=== PATIENT | male | born 1970 | race Caucasian/White ===

== ENCOUNTER 2017-02-28 15:13 | Observation (INO) | payer BC ==
[~2017-02-28] VITALS: Ht 182.9 cm; Wt 120.0 kg
[~2017-02-28 15:13] MED LIST: AUGM875 PO; CIPR500T2 PO; DARV PO; IBUP-232 PO
[2017-02-28 15:15] VITALS: BP 175/102; PULSE 111; RESP 15; TEMP 98.6; O2SAT 99
[2017-02-28] MEDS ORDERED: SODIUM CHLORIDE 0.9% FLUSH 10 ML FLUSH IVF PRN (16:00)
[2017-02-28] MEDS ORDERED: ASPIRIN 81 MG CHEW TAB PO ONE (16:00)
[2017-02-28] MEDS ORDERED: NITROGLYCERIN 2% OINT 1 GM PACKET TOP ONE (16:00)
[2017-02-28] MEDS ORDERED: SODIUM CHLORID 0.9% 500 ML INJ 500 ML IV ONE (16:00)
[2017-02-28 16:05] VITALS: BP 186/88; PULSE 101; RESP 20; O2SAT 98
[2017-02-28] MEDS ORDERED: AMLO10TA2 PO (16:07)
--- NOTE | 2017-02-28 16:12 | PD ---
HPI Chief Complaint: Chest Pain Time Seen by Provider: 15:37 Travel History International Travel<30 days: No Contact w/Intl Traveler<30days: No Traveled to known affect area: No History of Present Illness HPI 47-year-old male presents to emergency for with several episodes of left chest pain, which he describes as a cramping which lasted several minutes while at rest today. Patient states he also has noticed some left lower leg edema which she noticed yesterday and seems to be somewhat worse today. Upon arrival here in the emergency department he is pain-free and denies shortness of breath, nausea, vomiting, or fever. No significant cough is noted. Patient does take amlodipine for hypertension but does not take anything for hyperlipidemia. Patient has no previous history of heart trouble or history of stress testing in the past. Patient does not take aspirin daily. Patient states he does have occasional heartburn and takes Prilosec for this occasionally, and does admit to some increased stress regarding work currently. He has no known drug allergies but is allergic to bees. PFSH Past Medical History Hypertension: Yes Social History Alcohol Use: Yes (occassionally ) Tobacco Use: No Substance Use: No Allergies-Medications (Allergen,Severity, Reaction): Coded Allergies: bee venom protein (honey bee) (Unverified Allergy, Severe, LOCALIZED SWELLING, 11/26/16) No Known Allergies (Verified , 04/23/07) Reported Meds & Prescriptions Reported Meds & Active Scripts Active Reported Amlodipine (Amlodipine Besylate) 10 Mg Tab 10 Mg PO DAILY Review of Systems Except as stated in HPI: all other systems reviewed are Neg General / Constitutional: No: Fever, Chills Eyes: No: Visual changes HENT: No: Headaches Cardiovascular: Positive: Chest Pain or Discomfort, Edema (history of present illness. See history of present illness), No: Palpitations, Irregular Rhythm, Tachycardia, Diaphoresis, Syncope, Dyspnea on exertion, Varicosities, Varicosities, Phlebitis, Claudication Respiratory: No: Cough, Shortness of Breath, Wheezing Gastrointestinal: No: Nausea, Vomiting, Diarrhea, Abdominal Pain Genitourinary: No: Dysuria Musculoskeletal: No: Pain Skin: No Rash Neurologic: No: Weakness Psychiatric: No: Depression Endocrine: No: Polydipsia Hematologic/Lymphatic: No: Easy Bruising Physical Exam Narrative GENERAL: Patient appears in no acute distress. SKIN: Warm and dry. Normal color. Normal turgor. HEAD: Atraumatic. Normocephalic. EYES: Pupils equal and round. No scleral icterus. No injection or drainage. ENT: No nasal bleeding or discharge. Mucous membranes pink and moist. Pharynx is clear. Airway is patent NECK: Trachea midline. Supple and nontender. CARDIOVASCULAR: Regular rate and rhythm. No murmurs gallops or rubs. RESPIRATORY: No accessory muscle use. Clear to auscultation. Breath sounds equal bilaterally. GASTROINTESTINAL: Abdomen soft, non-tender, nondistended. Hepatic and splenic margins not palpable. MUSCULOSKELETAL: Extremities without clubbing, cyanosis, or 1-2+ nonpitting nontender edema in the left lower leg. No obvious deformities. Negative Homans sign. NEUROLOGICAL: Awake and alert. No obvious cranial nerve deficits. Motor grossly within normal limits. Five out of 5 muscle strength in the arms and legs. Normal speech. PSYCHIATRIC: Appropriate mood and affect; insight and judgment normal. Data Data Last Documented VS Vital Signs Date Time Temp Pulse Resp B/P (MAP) Pulse Ox O2 Delivery O2 Flow Rate FiO2 02/28/17 17:57 97 20 139/84 (102) 97 Room Air 02/28/17 15:15 98.6 Orders Orders Electrocardiogram (02/28/17 15:55) B-Type Natriuretic Peptide (02/28/17 15:55) Ckmb (Isoenzyme) Profile (02/28/17 15:55) Complete Blood Count With Diff (02/28/17 15:55) Comprehensive Metabolic Panel (02/28/17 15:55) Magnesium (Mg) (02/28/17 15:55) Prothrombin Time / Inr (Pt) (02/28/17 15:55) Act Partial Throm Time (Ptt) (02/28/17 15:55) Troponin I (02/28/17 15:55) Chest, Single Ap (02/28/17 15:55) Ecg Monitoring (02/28/17 15:55) Bilateral Bp Monitoring (02/28/17 15:55) Iv Access Insert/Monitor (02/28/17 15:55) Oximetry (02/28/17 15:55) Oxygen Administration (02/28/17 15:55) Aspirin Chew (Aspirin Chew) (02/28/17 16:00) Nitroglycerin 2% Oint (Nitroglycerin 2% (02/28/17 16:00) Sodium Chloride 0.9% Flush (Ns Flush) (02/28/17 16:00) Sodium Chlorid 0.9% 500 Ml Inj (Ns 500 M (02/28/17 16:00) Us Leg Venous Doppler (02/28/17 15:55) CKMB (02/28/17 16:20) CKMB% (02/28/17 16:20) Acetaminophen (Tylenol) (02/28/17 18:00) Activity Bed Rest With Brp (02/28/17 17:57) Vital Signs (Adult) Q4H (02/28/17:57) Cardiac Rhythm .As Directed (02/28/17:57) Notify Dr: Other .PRN (02/28/17:57) Notify DrArun Parameters (02/28/17:57) Resp Oxygen Nasal Cannula (02/28/17 ) Diet Heart Healthy (02/28/17 Dinner) Ckmb (Isoenzyme) Profile (02/28/17 17:57) Ckmb (Isoenzyme) Profile (02/28/17 20:57) Troponin I (02/28/17 17:57) Troponin I (02/28/17 20:57) Electrocardiogram (02/28/17 17:57) Electrocardiogram (02/28/17 20:57) ^ Obtain (02/28/17 17:57) Sodium Chloride 0.9% Flush (Ns Flush) (02/28/17 18:00) Sodium Chloride 0.9% Flush (Ns Flush) (02/28/17 21:00) Acetaminophen (Tylenol) (02/28/17 18:00) Head Teller / Telemetry MARY.Q8H (02/28/17 17:57) Admit Order (Ed Use Only) (02/28/17 18:01) Labs Laboratory Tests Test 02/28/17 16:20 White Blood Count 6.7 TH/MM3 Red Blood Count 4.92 MIL/MM3 Hemoglobin 15.9 GM/DL Hematocrit 45.0 % Mean Corpuscular Volume 91.6 FL Mean Corpuscular Hemoglobin 32.4 PG Mean Corpuscular Hemoglobin Concent 35.3 % Red Cell Distribution Width 13.6 % Platelet Count 285 TH/MM3 Mean Platelet Volume 7.8 FL Neutrophils (%) (Auto) 64.0 % Lymphocytes (%) (Auto) 20.7 % Monocytes (%) (Auto) 9.1 % Eosinophils (%) (Auto) 5.4 % Basophils (%) (Auto) 0.8 % Neutrophils # (Auto) 4.3 TH/MM3 Lymphocytes # (Auto) 1.4 TH/MM3 Monocytes # (Auto) 0.6 TH/MM3 Eosinophils # (Auto) 0.4 TH/MM3 Basophils # (Auto) 0.1 TH/MM3 CBC Comment DIFF FINAL Differential Comment Prothrombin Time 10.7 SEC Prothromb Time International Ratio 1.0 RATIO Activated Partial Thromboplast Time 25.4 SEC Blood Urea Nitrogen 12 MG/DL Creatinine 1.30 MG/DL Random Glucose 122 MG/DL Total Protein 7.5 GM/DL Albumin 4.1 GM/DL Calcium Level 8.9 MG/DL Magnesium Level 2.1 MG/DL Alkaline Phosphatase 57 U/L Aspartate Amino Transf (AST/SGOT) 27 U/L Alanine Aminotransferase (ALT/SGPT) 53 U/L Total Bilirubin 1.5 MG/DL Sodium Level 139 MEQ/L Potassium Level 3.6 MEQ/L Chloride Level 105 MEQ/L Carbon Dioxide Level 26.0 MEQ/L Anion Gap 8 MEQ/L Estimat Glomerular Filtration Rate 59 ML/MIN Total Creatine Kinase 400 U/L Creatine Kinase MB 3.0 NG/ML Creatine Kinase MB % 0.8 % Troponin I LESS THAN 0.02 NG/ML B-Type Natriuretic Peptide 2 PG/ML MDM Medical Decision Making Medical Screen Exam Complete: Yes Emergency Medical Condition: Yes Differential Diagnosis Pedal edema. DVT. PE. Cardiac syndrome. Chest pain. OH. Narrative Course Patient appears medically stable at time of exam is pain-free. EKG shows sinus rhythm with nonspecific ST changes. This is reviewed with Dr. Perez. IV access is obtained and labs are ordered including CBC, CMP, cardiac panel, PT PTT and INR, and proBNP. Patient given 324 mg aspirin by mouth. 1 inch of 2% nitroglycerin paste is placed. Chest x-ray is ordered as well as ultrasound of the left lower extremity. Chest x-ray is unremarkable for acute process per radiologist. Ultrasound left leg is unremarkable. CBC is unremarkable. Coagulation studies are unremarkable. CMP is normal except for GFR 59, random glucose is 122. First troponin is less than 0.02. ProBNP is normal. Patient developed a headache and was given 1000 mg acetaminophen by mouth. Patient agrees to be admitted to the chest pain center for observation and further workup. Chest pain center admission orders are placed. Diagnosis Primary Impression: Chest pain at rest Admitting Information Admitting Physician Requests: Observation Condition: Stable Conrad Brown Feb 28, 2017 16:12
--- NOTE | 2017-02-28 16:16 | RADRPT ---
EXAM DATE/TIME: 02/28/2017 15:58 [facility] COMPARISON: No previous studies available for comparison. INDICATIONS : Chest pain with some lightheadedness. MEDICAL HISTORY : None. SURGICAL HISTORY : None. ENCOUNTER: Initial ACUITY: 1 day PAIN SCORE: 4/10 LOCATION: Left chest FINDINGS: A single view of the chest demonstrates the lungs to be symmetrically aerated without evidence of mas s, infiltrate or effusion. The study is Midinspiratory. There are overlying electrocardiogram leads. The cardiomediastinal contours are unremarkable. Osseous structures are intact. CONCLUSION: Midinspiratory exam with no acute cardiopulmonary disease. James Tyson MD on February 28, 2017 at 16:14 Board Certified Radiologist. This report was verified electronically.
--- NOTE | 2017-02-28 16:36 | RADRPT ---
EXAM DATE/TIME: 02/28/2017 16:14 [facility] COMPARISON: No previous studies available for comparison. INDICATIONS : Left leg swelling. MEDICAL HISTORY : Left leg swelling. SURGICAL HISTORY : Right hand surgery. Right knee surgery. ENCOUNTER: Initial ACUITY: 1 day PAIN SCORE: 1/10 LOCATION: Left leg. TECHNIQUE: Venous ultrasound of the leg was performed from the inguinal ligament to the proximal calf. Real-promise e, color Doppler and spectral tracing, compression and augmentation techniques were used. FINDINGS: There is normal compressibility of the deep venous system from the inguinal region to the proximal ca lf. No echogenic clot is seen in the lumen of the common femoral, femoral, popliteal, and posterior tibial veins. There is a normal response of the venous system to proximal and distal augmentation an d respiration. CONCLUSION: Negative exam with no evidence of deep venous thrombosis. James Tyson MD on February 28, 2017 at 16:34 Board Certified Radiologist. This report was verified electronically.
[2017-02-28 17:04] LABS: AUTOMATED NEUTROPHIL # 4.3 TH/MM3 (1.8-7.7); BASOPHIL # 0.1 TH/MM3 (0-0.2); BASOPHIL % 0.8 % (0.0-2.0); EOSINOPHIL # 0.4 TH/MM3 (0-0.4); EOSINOPHIL % 5.4 % (0.0-4.0); HEMO FLAGS DIFF FINAL; LYMPH % 20.7 % (9.0-44.0); LYMPHOCYTE # 1.4 TH/MM3 (1.0-4.8); MEAN CELL VOLUME 91.6 FL (80.0-100.0); MEAN CORPUSCULAR HEMOGLOBIN 32.4 PG (27.0-34.0); MEAN CORPUSCULAR HGB CONC 35.3 % (32.0-36.0); MONO % 9.1 % (0.0-8.0); PLATELET COUNT 285 TH/MM3 (150-450); RED BLOOD COUNT 4.92 MIL/MM3 (4.50-5.90); RED CELL DISTRIBUTION WIDTH 13.6 % (11.6-17.2); WHITE BLOOD COUNT 6.7 TH/MM3 (4.0-11.0)
[2017-02-28 17:11] LABS: APTT (PATIENT) 25.4 SEC (24.3-30.1); PROTHROMBIN TIME - PATIENT 10.7 SEC (9.8-11.6)
[2017-02-28 17:15] LABS: ANION GAP 8 MEQ/L (5-15); AST (GOT) 27 U/L (15-37); BLOOD UREA NITROGEN 12 MG/DL (7-18); CHLORIDE 105 MEQ/L (98-107); GLOMERULAR FILTRATION RATE 59 ML/MIN (>89); MAGNESIUM 2.1 MG/DL (1.5-2.5); POTASSIUM 3.6 MEQ/L (3.5-5.1); SODIUM (NA) 139 MEQ/L (136-145)
[2017-02-28 17:19] LABS: ALKALINE PHOSPHATASE 57 U/L (45-117); ALT (GPT) 53 U/L (12-78); CREATINE KINASE 400 U/L (39-308); TOTAL BILIRUBIN ADULT 1.5 MG/DL (0.2-1.0)
[2017-02-28 17:57] VITALS: BP 139/84; PULSE 97; RESP 20; O2SAT 97
[2017-02-28] MEDS ORDERED: ACETAMINOPHEN 500 MG CPLT PO ONE (18:00)
[2017-02-28] MEDS ORDERED: ACETAMINOPHEN 500 MG CPLT PO PRN (18:00)
[2017-02-28] MEDS ORDERED: SODIUM CHLORIDE 0.9% FLUSH 10 ML FLUSH IV FLUSH PRN (18:00)
[2017-02-28 19:06] LABS: CREATINE KINASE 347 U/L (39-308)
[2017-02-28 19:18] LABS: CKMB 2.4 NG/ML (0.5-3.6)
[2017-02-28 20:00] VITALS: O2SAT 97
[2017-02-28] MEDS: SODIUM CHLORIDE 0.9% FLUSH 10 ML FLUSH IV FLUSH SCH (21:08)
[2017-02-28 21:43] VITALS: BP 108/69; PULSE 83; RESP 18; TEMP 98; O2SAT 95
[2017-02-28 22:10] LABS: CREATINE KINASE 322 U/L (39-308)
[2017-02-28 22:22] LABS: CKMB 2.3 NG/ML (0.5-3.6)
[2017-02-28 23:13] VITALS: BP 125/79; PULSE 66; RESP 18; TEMP 98.1; O2SAT 94
[2017-03-01 06:15] VITALS: BP 131/73; PULSE 60; RESP 18; TEMP 98.5; O2SAT 97
[2017-03-01 06:45] VITALS: PULSE 75
[2017-03-01 07:30] VITALS: PULSE 90
[2017-03-01] MEDS ORDERED: NITROGLYCERIN 0.4 MG SL 25 TABS/BTL SL PRN (07:30)
[2017-03-01] MEDS ORDERED: ONDANSETRON HCL 4 MG/2 ML VIAL IV PUSH PRN (07:30)
[2017-03-01] MEDS: SODIUM CHLORIDE 0.9% FLUSH 10 ML FLUSH IV FLUSH SCH (08:04)
--- NOTE | 2017-03-01 08:22 | HHI.HP ---
HPI Primary Care Physician Gamaliel Rivera MD Chief Complaint Chest pain History of Present Illness 47-year-old male with history of hypertension presents to emergency room for further evaluation of chest pain. Onset . Location left anterior chest described as intermittent "funny feeling, like a sore muscle." Discomfort comes on gradually then quickly goes away. Duration varies from 5- 10 minutes. No radiation of pain. No associated symptoms of nausea, vomiting, dyspnea, or diaphoresis. Nonexertional. No known precipitating or relieving factors. No particular movement, position, or taking a deep breath makes pain better or worse. Denies similar pain in the past. Also noticed left lower extremity edema . Endorses left leg normal retains fluid where right leg does not, however edema more pronounced. Leg edema and intermittent chest discomfort concerned him therefore came to hospital for further evaluation. Review of Systems General: No fatigue,weakness, fever, chills, recent illness, or change in appetite. Has been his general state of health. HEENT: No GARNER, no vision changes, no nasal congestion or drainage. CV: As stated above. Has been chest pain-free with no further episodes since arrival to ER. RESP: No SOB, cough, wheeze, recent URI, or history of asthma. GI: No nausea, vomiting, bowel changes, diarrhea, constipation, pain, distention , melena, or blood in the stool. No unintentional weight gain or weight loss. : No dysuria, urgency, frequency, or history of kidney stones EXT: No lower leg edema, no paraesthesias MS: No discomfort or change in ROM. No recent injury, trauma, or fall. NEURO: No difficulty with balance, LOC, motor/sensory deficits PSYCH: No anxiety or depression. Reports slight work situational stress, working towards deadlines. Does not feel overly stressed. SKIN: No rashes, no concerning lesions Past Family Social History Allergies: Coded Allergies: bee venom protein (honey bee) (Unverified Allergy, Severe, LOCALIZED SWELLING, 11/26/16) No Known Allergies (Verified Allergy, Mild, 04/23/07) Past Medical History Hypertension Past Surgical History Right wrist surgery, right knee surgery Reported Medications Reported Meds & Active Scripts Active Reported Amlodipine (Amlodipine Besylate) 10 Mg Tab 10 Mg PO DAILY Active Ordered Medications Current Medications Medications (Trade) Dose Ordered Sig/Kathy Route Start Time Stop Time Status Last Admin (NS Flush) 2 ml UNSCH PRN IV FLUSH 02/28/17 18:00 (NS Flush) 2 ml BID IV FLUSH 02/28/17 21:00 03/01/17 08:04 (Tylenol) 500 mg Q4H PRN PO 02/28/17 18:00 (Zofran Inj) 4 mg Q6H PRN IV PUSH 03/01/17 07:30 03/01/17 08:04 (Nitrostat Sl) 0.4 mg Q5M PRN SL 03/01/17 07:30 (Aspirin) 325 mg DAILY PO 03/01/17 09:00 03/01/17 08:04 Family History Noncontributory for early cardiovascular disease. Social History Known hypertension. No known coronary artery disease, diabetes, or hyperlipidemia. Lifelong nonsmoker. Occasional alcohol. Denies any illegal drug use. , 2 children ages 9 and 11. 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 Past cardiac testing None Physical Exam Vital Signs Vital Signs Date Time Temp Pulse Resp B/P (MAP) Pulse Ox O2 Delivery O2 Flow Rate FiO2 03/01/17 06:45 75 03/01/17 06:15 98.5 60 18 131/73 (92) 97 02/28/17 23:13 98.1 66 18 125/79 (94) 94 02/28/17 21:43 98.0 83 18 108/69 (82) 95 02/28/17 20:00 97 02/28/17 19:18 02/28/17 17:57 97 20 139/84 (102) 97 Room Air 02/28/17 16:05 101 20 186/88 (120) 98 02/28/17 16:02 96 Room Air 02/28/17 16:02 (126) Room Air 02/28/17 15:49 105 20 98 Room Air 02/28/17 15:15 98.6 111 15 175/102 (126) 99 Physical Exam GENERAL: Alert WN, WD, NAD, pleasant, obese, male HEAD: NC, AT EYES: Sclera clear, conjunctiva without injection, pupils equal and round ENT: Mucous membranes pink and moist NECK: Supple, no masses, trachea midline CV: RRR, 2/6 systolic murmur heard best right upper sternal boarder, no rub, no gallop, no JVD, S1-S2 no S3-S4. No carotid or femoral bruits. Referred sound from murmur radiating to right carotid. Chest pain not reproduced with palpation. RESP: Clear lungs throughout bilateral, no crackles, wheeze, rhonchi, symmetrical chest rise, nonlabored, able to speak in full sentences ABD: Soft, NT, ND, no masses, positive bowel tones EXT: Pulses +24, +1 pitting left dependent edema MS: Normal tone 4 extremities, nontender, no obvious deformities, full range of motion NEURO: CN II through CN XII grossly intact, motor strength 5/5, gait WNL PSYCH: A+O 3, pleasant affect, appropriate speech, mood, insight and judgment SKIN: Normal turgor, normal texture, no lesions, no rashes, brisk cap refill, even hair distribution Laboratory Laboratory Tests Test 02/28/17 16:20 02/28/17 18:30 02/28/17 21:00 White Blood Count 6.7 Red Blood Count 4.92 Hemoglobin 15.9 Hematocrit 45.0 Mean Corpuscular Volume 91.6 Mean Corpuscular Hemoglobin 32.4 Mean Corpuscular Hemoglobin Concent 35.3 Red Cell Distribution Width 13.6 Platelet Count 285 Mean Platelet Volume 7.8 Neutrophils (%) (Auto) 64.0 Lymphocytes (%) (Auto) 20.7 Monocytes (%) (Auto) 9.1 Eosinophils (%) (Auto) 5.4 Basophils (%) (Auto) 0.8 Neutrophils # (Auto) 4.3 Lymphocytes # (Auto) 1.4 Monocytes # (Auto) 0.6 Eosinophils # (Auto) 0.4 Basophils # (Auto) 0.1 CBC Comment DIFF FINAL Differential Comment Prothrombin Time 10.7 Prothromb Time International Ratio 1.0 Activated Partial Thromboplast Time 25.4 Blood Urea Nitrogen 12 Creatinine 1.30 Random Glucose 122 Total Protein 7.5 Albumin 4.1 Calcium Level 8.9 Magnesium Level 2.1 Alkaline Phosphatase 57 Aspartate Amino Transf (AST/SGOT) 27 Alanine Aminotransferase (ALT/SGPT) 53 Total Bilirubin 1.5 Sodium Level 139 Potassium Level 3.6 Chloride Level 105 Carbon Dioxide Level 26.0 Anion Gap 8 Estimat Glomerular Filtration Rate 59 Total Creatine Kinase 400 347 322 Creatine Kinase MB 3.0 2.4 2.3 Creatine Kinase MB % 0.8 0.7 0.7 Troponin I LESS THAN 0.02 LESS THAN 0.02 LESS THAN 0.02 B-Type Natriuretic Peptide 2 Result Diagram: 02/28/17 1620 02/28/17 1620 Imaging Last Impressions Lower Extremity Ultrasound 02/28/17 1555 Signed Impressions: Service Date/Time: Tuesday, February 28, 2017 16:14 - CONCLUSION: Negative exam with no evidence of deep venous thrombosis. James Tyson MD Chest X-Ray 02/28/171554 Signed Impressions: Service Date/Time: Tuesday, February 28, 2017 15:58 - CONCLUSION: Midinspiratory exam with no acute cardiopulmonary disease. James Tyson MD Course EKG Sinus rhythm, normal axis, no ST or T-segment changes Caprini VTE Risk Assessment Caprini VTE Risk Assessment: No/Low Risk (score <= 1) Caprini Risk Assessment Model Point Value = 1 Point Value = 2 Point Value = 3 Point Value = 5 Age 41-60 Minor surgery BMI > 25 kg/m2 Swollen legs Varicose veins or History of unexplained or recurrent spontaneous Oral contraceptives or hormone replacement Sepsis (< 1 month) Serious lung disease, including pneumonia (< 1 month) Abnormal pulmonary function Acute myocardial infarction Congestive heart failure (< 1 month) History of inflammatory bowel disease Medical patient at bed rest Age 61-74 Arthroscopic surgery Major open surgery (> 45 min) Laparoscopic surgery (> 45 min) Malignancy Confined to bed (> 72 hours) Immobilizing plaster cast Central venous access Age >= 75 History of VTE Family history of VTE Factor V Leiden Prothrombin 06209H Lupus anticoagulant Anticardiolipin antibodies Elevated serum homocysteine Heparin-induced thrombocytopenia Other congenital or acquired thrombophilia Stroke (< 1 month) Elective arthroplasty Hip, pelvis, or leg fracture Acute spinal cord injury (< 1 month) Prophylaxis Regimen Total Risk Factor Score Risk Level Prophylaxis Regimen 0-1 Low Early ambulation 2 Moderate Order ONE of the following: *Sequential Compression Device (SCD) *Heparin 5000 units SQ BID 3-4 Higher Order ONE of the following medications: *Heparin 5000 units SQ TID *Enoxaparin/Lovenox 40 mg SQ daily (WT < 150 kg, CrCl > 30 mL/min) *Enoxaparin/Lovenox 30 mg SQ daily (WT < 150 kg, CrCl > 10-29 mL/min) *Enoxaparin/Lovenox 30 mg SQ BID (WT < 150 kg, CrCl > 30 mL/min) AND/OR *Sequential Compression Device (SCD) 5 or more Highest Order ONE of the following medications: *Heparin 5000 units SQ TID (Preferred with Epidurals) *Enoxaparin/Lovenox 40 mg SQ daily (WT < 150 kg, CrCl > 30 mL/min) *Enoxaparin/Lovenox 30 mg SQ daily (WT < 150 kg, CrCl > 10-29 mL/min) *Enoxaparin/Lovenox 30 mg SQ BID (WT < 150 kg, CrCl > 30 mL/min) AND *Sequential Compression Device (SCD) Assessment and Plan Assessment and Plan #! Atypical chest pain-admitted chest pain center. Ruled out with 3 sets of EKGs, cardiac enzymes, monitor overnight. Seen and evaluated by Dr. Prosper Cardona. Proceeded with an exercise stress test. Stress testing did not indicate EKG changes to suggest ischemia. Discharge later this afternoon. Instructed him to notify his PCP of his visit to ER with subsequent stress testing. #2 Hypertension-continue amlodipine 10 mg, follow-up with PCP, discussed possibility fluid retention may be due to amlodipine however usually fluid retention not unilateral. Discussed with PCP, no need to discontinue or switch medication at this time. #3 Left lower leg edema-lower extremity ultrasound negative for DVT completed in ER. Mild edema currently. Most likely due to decreased peripheral vascular return made worse with obesity. Discussed this with patient. Encouraged increasing daily activity and weight loss. Meghan Leblanc Mar 01, 2017 08:22
[2017-03-01] MEDS ORDERED: ASPIRIN 325 MG TAB PO SCH (09:00)
[2017-03-01 09:01] VITALS: BP 126/64; PULSE 83; RESP 18; TEMP 98.1; O2SAT 96
[2017-03-01 10:29] VITALS: PULSE 99
--- NOTE | 2017-03-01 11:14 | HHI.DCPOC ---
Discharge Care Plan Diagnosis: (1) Atypical chest pain (2) Hypertension (3) Situational stress Goals to Promote Your Health * To prevent worsening of your condition and complications * To maintain your health at the optimal level Directions to Meet Your Goals Take your medications as prescribed Follow your dietary instruction Follow activity as directed Keep your appointments as scheduled Take your immunizations and boosters as scheduled If your symptoms worsen call your PCP, if no PCP go to Urgent Care Center or Emergency Room Smoking is Dangerous to Your Health. Avoid second hand smoke Call the 24-hour hour crisis hotline for domestic abuse at Meghan Leblanc Mar 01, 2017 11:14
[2017-03-01 11:28] VITALS: BP 129/87; PULSE 93; RESP 12; TEMP 97.6; O2SAT 95
--- NOTE | 2017-03-01 12:03 | EKG ---
Date Performed: 02/28/2017 Time Performed: 21:49:14 PTAGE: 47 years EKG: Sinus rhythm WITH SINUS ARRHYTHMIA WITH FIRST DEGREE AV BLOCK NONSPECIFIC T-WAVE ABNORMALITY ABNORMAL ECG PREVIOUS TRACING : 02/28/2017 18.48 Since previous tracing, no significant change noted DOCTOR: Prosper Cardona Interpretating Date/Time 03/01/2017 12:02:49
--- NOTE | 2017-03-01 12:04 | EKG ---
Date Performed: 02/28/2017 Time Performed: 18:48:08 PTAGE: 47 years EKG: Sinus rhythm WITH FIRST DEGREE AV BLOCK NONSPECIFIC T-WAVE ABNORMALITY ABNORMAL ECG PREVIOUS TRACING : 02/28/2017 15.50 Since previous tracing, no significant change noted DOCTOR: Prosper Cardona Interpretating Date/Time 03/03/2017 07:06:46
--- NOTE | 2017-03-01 12:07 | EKG ---
Date Performed: 02/28/2017 Time Performed: 15:50:39 PTAGE: 47 years EKG: SINUS TACHYCARDIA ABNORMAL RHYTHM ECG INTERPRETATION BASED ON A DEFAULT AGE OF 40 YEARS PREVIOUS TRACING : 04/23/2007 11.46 Since previous tracing, no significant change noted DOCTOR: Prosper Cardona Interpretating Date/Time 03/01/2017 12:05:17
--- NOTE | 2017-03-01 12:13 | TR ---
Date Performed: 03/01/2017 Time Performed: 10:44:23 DOCTOR: Prosper Cardona DRUG LIST: CLINICAL HISTORY: CHEST PAIN REASON FOR TEST: REASON FOR ENDING: OBSERVATION: CONCLUSION: Abdulkadir protocol completed. Stopped sec to exceeding target heart rate and leg fatigue . Maximum BB=899 Target HR Achieved=92.0% Maximum ZK=904/80 Total Exercise Time=7:35. No reprod chest pain. No ectopy. Good exercise tolerance. Hypertensive blood pressure response. Recovery quick and u nremarkable. No st changes to sugg ischemia. COMMENTS: Conclusion: Normal treadmill exercise. No evidence of ischemia.
== END 2017-03-01 13:04 | disposition home or self-care (01) ==
LOC: NEPE 15:13 → NEDA 18:03 → NEPFCDU 19:48
DX: R07.89 Other chest pain (principal); I10 Essential (primary) hypertension; R42 Dizziness and giddiness; R94.31 Abnormal electrocardiogram [ECG] [EKG]
CPT/HCPCS: 71010; 80053; 82550; 82552; 83735; 83880; 84484; 85025; 85610; 85730; 93005; 93017; 93971; 96361; 96374; 99285; G0378; J2405; J7040